=== PATIENT | female | born 1985 | race Hispanic/Latino ===

== ENCOUNTER 2016-10-22 14:16 | Emergency (ER) | payer OTHER ==
[2016-10-22 15:08] VITALS: BMI 23.1
[2016-10-22 15:09] VITALS: RESP 18; O2SAT 100
[2016-10-22] MEDS ORDERED: Sodium Chloride 0.9% 1,000 ML IV STA (15:47)
[2016-10-22 15:57] LABS: PH,URINE 6.5 (4.7-8.0); URINE BILIRUBIN NEGATIVE (NEGATIVE); URINE BLOOD MODERATE (NEGATIVE); URINE GLUCOSE (UA) NEGATIVE (NEGATIVE); URINE LEUKOCYTE ESTERASE NEGATIVE Leu/uL (NEGATIVE); URINE NITRATE NEGATIVE (NEGATIVE); URINE PROTEIN NEGATIVE mg/dL (<30 mg/dL); URINE UROBILINOGEN 0.2 E.U./dL (<1 E.U./dL)
[2016-10-22 15:58] LABS: URINE COLOR LIGHT YELLOW (YELLOW)
[2016-10-22 16:12] LABS: URINE APPEARANCE CLEAR (CLEAR); URINE WBC 0 - 2 /hpf (0-6)
[2016-10-22 16:13] LABS: URINE BACTERIA FEW (NEG); URINE RBC 0 - 2 /hpf (0-2)
[2016-10-22 16:15] VITALS: TEMP 98.2
--- NOTE | 2016-10-22 17:28 | ED PDOC ---
Arrival/HPI - General Chief Complaint: Abdominal Pain Time Seen by Provider: 10/22/16 15:46 - History of Present Illness Narrative History of Present Illness (Text): 10/22/16 17:24 31yo female, states she has a hx of hematuria, with 4 days duration of increased urinary frequency, suprapubic pressure, slight back pain, nausea, and fevers with chills. Denies vomiting. Denies neck or back pain. Denies other complaints. Past Medical History - Provider Review Nursing Documentation Reviewed: Yes - Infectious Disease Hx of Infectious Diseases: None - Psychiatric Hx Substance Use: No - Anesthesia Hx Anesthesia: No Family/Social History Family/Social History: Unknown Family HX Smoking Status: Never Smoked Hx Alcohol Use: No Hx Substance Use: No Allergies/Home Meds Allergies/Adverse Reactions: Allergies No Known Allergies Allergy (Verified 10/22/16 15:08) Physical Exam - Physical Exam Narrative Physical Exam (Text): 10/22/16 17:25 - Review of Systems Constitutional: fevers, chills. absent: Fatigue, Weight Change Eyes: Normal ENT: denies sore throat, denies tristhmus Respiratory: Normal. absent: SOB, Cough, Sputum Cardiovascular: absent: Chest Pain, Palpitations, Syncope Gastrointestinal: Normal. absent: Abdominal Pain, Diarrhea, Nausea, Vomiting Genitourinary: Frequency. absent: Dysuria, Hematuria, vaginal bleeding Musculoskeletal: Back Pain. absent: Arthralgias, Neck Pain Skin: no rashes, no erythema Neurological: absent: Focal Weakness Endocrine: Normal Hemo/Lymphatic: Normal Psychiatric: No suicidal or homicidal ideations Physical exam Patient appears age appropriate in no distress, speaking full sentences without difficulty - Systems Exam Head: Present: Atraumatic, Normocephalic Pupils: Present: PERRL Extroacular Muscles: Present: EOMI Conjunctiva: Present: Normal Mouth: Present: Moist Mucous Membranes Neck: Present: Normal Range of Motion. No: MIDLINE TENDERNESS, Paraspinal Tenderness Respiratory/Chest: Present: Clear to Auscultation, Good Air Exchange. No: Respiratory Distress, Accessory Muscle Use, Tachypneic Cardiovascular: Present: Regular Rate and Rhythm, Normal S1, S2, Peripheal Pulses Present. No: Murmurs Abdomen: Present: Suprapubic tenderness to palpation Normal Bowel Sounds. No: Distention, Peritoneal Signs, Rebound, Guarding Back: Present: Normal Inspection. No: Midline Tenderness, Paraspinal Tenderness Upper Extremity: Present: Normal Inspection. No: Cyanosis, Edema Lower Extremity: Present: Normal Inspection. No: Edema Neurological: Present: GCS=15, Speech Normal, cranial nerves II through XII fully intact with no cerebellar abnormality, neurosensory fully intact. No focal neurological deficits. Skin: Present: Warm, Dry, Normal Color. No: Rashes Lymphatic: Present: OX3, NI, NC Psychiatric: Present: Alert, Oriented x 3, Normal Insight, Normal Concentration 10/22/16 17:28 Vital Signs Reviewed: Yes Vital Signs Temp Pulse Resp BP Pulse Ox 10/22/16 17:51 79 18 119/69 100 10/22/16 16:14 98.2 F 89 18 115/71 100 10/22/16 15:08 90 18 117/78 100 Temperature: Afebrile Blood Pressure: Normal Pulse: Regular Respiratory Rate: Normal Appearance: Positive for: Well-Appearing Pain Distress: None Mental Status: Positive for: Alert and Oriented X 3 Medical Decision Making ED Course and Treatment: 10/22/16 17:26 31yo female with freq, nausea, f/c. states she has a hx of hematuria and her PMD is aware differential includes but not limited to: UTI, pyelo labs, ua, meds ordered 10/22/16 18:33 no acute lab findings UA with possible UTI CT with no acute findings pt in no distress tolerating PO without difficulty will be dc'd home with PO abx pt states she feels comfortable being dc'd home with outpatient f/u Pt states she understands to return to the ER right away for new or worsening symptoms or for inability to f/u with PMD or specialist as instructed. Patient states that she fully agrees with and understands discharge instructions. States that she agrees with the plan and disposition. Verbalized and repeated discharge instructions and plan. I have given the patient opportunity to ask any additional questions. Director Of Corporate Sales : Jalyn Snow MD PROCEDURE: CT Abdomen and Pelvis without Oral or IV contrast. HISTORY: hematuria COMPARISON: Renal ultrasound performed 07/16/16 TECHNIQUE: Contiguous axial images of the abdomen and pelvis. No oral or IV contrast administered. Coronal and Sagittal reformats generated and reviewed. Radiation dose: Total exam DLP = 257.03 mGy-cm. This CT exam was performed using one or more of the following dose reduction techniques: Automated exposure control, adjustment of the mA and/or kV according to patient size, and/or use of iterative reconstruction technique. FINDINGS: There is limited evaluation of the solid organs without the administration of IV contrast. LOWER THORAX: No visible consolidation, pleural effusion, or pneumothorax. LIVER: Unremarkable unenhanced appearance. GALLBLADDER AND BILE DUCTS: Unremarkable unenhanced appearance. PANCREAS: Unremarkable unenhanced appearance. SPLEEN: Unremarkable unenhanced appearance. ADRENALS: Unremarkable unenhanced appearance. KIDNEYS AND URETERS: No hydronephrosis or obstructing renal calculus. BLADDER: Decompressed urinary bladder cannot be adequately assessed. REPRODUCTIVE: Uterus is present. APPENDIX: The appendix appears within normal limits of caliber. No secondary signs of acute appendicitis. BOWEL: The stomach is nondistended. Lack of oral contrast limits evaluation for bowel pathology. The bowel loops appear within normal limits of caliber without evidence of intestinal obstruction. PERITONEUM: No significant free fluid. No definite free air. LYMPH NODES: No bulky lymphadenopathy identified. VASCULATURE: No aortic aneurysm. BONES: No acute osseous abnormality is detected. OTHER FINDINGS: None. IMPRESSION: Decompressed urinary bladder cannot be adequately assessed. No hydronephrosis or obstructing renal/ureteral calculus identified. - Lab Interpretations Lab Results: 10/22/16 17:25 10/22/16 17:25 Lab Results 10/22/16 17:25: Sodium 142, Potassium 3.3 L, Chloride 103, Carbon Dioxide 27, Anion Gap 15, BUN 8, Creatinine 0.6, Est GFR ( Amer) > 60, Est GFR (Non- Af Amer) > 60, Random Glucose 85, Calcium 9.8, Total Bilirubin 0.7, AST 28, ALT 29, Alkaline Phosphatase 58, Total Protein 9.1 H, Albumin 5.0 H, Globulin 4.2, Albumin/Globulin Ratio 1.2 10/22/16 17:25: WBC 7.0 D, RBC 4.34, Hgb 14.0, Hct 39.4, MCV 90.8, MCH 32.3, MCHC 35.5, RDW 11.8, Plt Count 184, MPV 10.7, Gran % 54.1, Lymph % (Auto) 30.6, [place] % (Auto) 14.0 H, Eos % (Auto) 1.0 L, Baso % (Auto) 0.3, Gran # 3.80, Lymph # 2.2, [place] # 1.0 H, Eos # 0.1, Baso # 0.02 10/22/16 15:12: Urine Color Light yellow, Urine Appearance Clear, Urine pH 6.5, Ur Specific [place] <= 1.005, Urine Protein Negative, Urine Glucose (UA) Negative, Urine Ketones Negative, Urine Blood Moderate H, Urine Nitrate Negative , Urine Bilirubin Negative, Urine Urobilinogen 0.2, Ur Leukocyte Esterase Negative, Urine RBC 0 - 2, Urine WBC 0 - 2, Ur Epithelial Cells 1 - 3, Urine Bacteria Few - RAD Interpretation Radiology Orders: 10/22/16 16:18 ABD & PELVIS W/O PO OR IV CONT [CT] Stat - Medication Orders Current Medication Orders: Discontinued Medications Sodium Chloride (Sodium Chloride 0.9%) 1,000 mls @ 1,000 mls/hr IV .Q1H STA Stop: 10/22/16 16:46 Last Admin: 10/22/16 17:37 Dose: 1,000 mls/hr Ketorolac Tromethamine (Toradol) 15 mg IVP STAT STA Stop: 10/22/16 15:48 Last Admin: 10/22/16 17:39 Dose: Ondansetron HCl (Zofran Inj) 4 mg IVP STAT STA Stop: 10/22/16 15:48 Last Admin: 10/22/16 17:39 Dose: Disposition/Present on Arrival - Present on Arrival Any Indicators Present on Arrival: No History of DVT/PE: No History of Uncontrolled Diabetes: No Urinary Catheter: No History of Decub. Ulcer: No History Surgical Site Infection Following: None - Disposition Have Diagnosis and Disposition been Completed?: Yes Diagnosis: UTI (urinary tract infection) Disposition: HOME/ ROUTINE Disposition Time: 18:37 Patient Plan: Discharge Condition: GOOD Discharge Instructions (ExitCare): Acute Hematuria (ED), Urinary Tract Infection in Women (DC) Additional Instructions: PLEASE RETURN TO THE EMERGENCY DEPARTMENT FOR NEW OR WORSENING SYMPTOMS. RETURN RIGHT AWAY IF YOU CANNOT FOLLOW UP WITH YOUR PRIMARY CARE DOCTOR, CLINIC, OR SPECIALIST IN 1-2 DAYS. PLEASE INFORM YOUR PRIMARY PHYSICIAN THAT YOU NEED FURTHER WORKUP AND INVESTIGATION OF BLOOD IN THE URINE PLEASE FOLLOW UP IN MEDICAL RECORDS FOR YOUR URINE RESULTS Prescriptions: Nitrofurantoin Macrocrystals [Macrobid] 100 mg PO BID #14 cap Referrals: Potoczek-Salahi,Aniyah, MD [Primary Care Provider] - Follow up with primary
[2016-10-22 17:47] LABS: BASO # 0.02 K/mm3 (0.0-2.0); BASO % 0.3 % (0.0-3.0); EOS # 0.1 (0.0-0.7); GRAN % 54.1 % (50.0-68.0); LYMPH # 2.2 (1.2-3.4); LYMPH % 30.6 % (22.0-35.0); MEAN CELL VOLUME 90.8 fL (80.0-105.0); MEAN CORPUSCULAR HEMOGLOBIN 32.3 pg (25.0-35.0); MEAN CORPUSCULAR HGB CONC 35.5 g/dl (31.0-37.0); MEAN PLATELET VOLUME 10.7 fl (7.0-11.0); PLATELET COUNT 184 10^3/uL (120.0-450.0); RBC 4.34 10^6/uL (3.5-6.1); RED CELL DISTRIBUTION WIDTH 11.8 % (11.5-14.5)
[2016-10-22 17:51] VITALS: BP 119/69; PULSE 79
[2016-10-22 17:57] LABS: ALB/GLOB RATIO 1.2 (1.1-1.8); AST/SGOT 28 U/L (15-39); BLOOD UREA NITROGEN 8 mg/dL (7-21); CALCIUM 9.8 mg/dL (8.4-10.5); GFR AFRICAN-AMERICAN > 60; GFR NON-AFRICAN AMERICAN > 60
[2016-10-22 18:02] LABS: ALT/SGPT 29 U/L (7-56)
--- NOTE | 2016-10-22 18:16 | CT ---
PROCEDURE: CT Abdomen and Pelvis without Oral or IV contrast. HISTORY: hematuria COMPARISON: Renal ultrasound performed 07/16/16 TECHNIQUE: Contiguous axial images of the abdomen and pelvis. No oral or IV contrast administered. Coronal and Sagittal reformats generated and reviewed. Radiation dose: Total exam DLP = 257.03 mGy-cm. This CT exam was performed using one or more of the following dose reduction techniques: Automated exposure control, adjustment of the mA and/or kV according to patient size, and/or use of iterative reconstruction technique. FINDINGS: There is limited evaluation of the solid organs without the administration of IV contrast. LOWER THORAX: No visible consolidation, pleural effusion, or pneumothorax. LIVER: Unremarkable unenhanced appearance. GALLBLADDER AND BILE DUCTS: Unremarkable unenhanced appearance. PANCREAS: Unremarkable unenhanced appearance. SPLEEN: Unremarkable unenhanced appearance. ADRENALS: Unremarkable unenhanced appearance. KIDNEYS AND URETERS: No hydronephrosis or obstructing renal calculus. BLADDER: Decompressed urinary bladder cannot be adequately assessed. REPRODUCTIVE: Uterus is present. APPENDIX: The appendix appears within normal limits of caliber. No secondary signs of acute appendicitis. BOWEL: The stomach is nondistended. Lack of oral contrast limits evaluation for bowel pathology. The bowel loops appear within normal limits of caliber without evidence of intestinal obstruction. PERITONEUM: No significant free fluid. No definite free air. LYMPH NODES: No bulky lymphadenopathy identified. VASCULATURE: No aortic aneurysm. BONES: No acute osseous abnormality is detected. OTHER FINDINGS: None. IMPRESSION: Decompressed urinary bladder cannot be adequately assessed. No hydronephrosis or obstructing renal/ureteral calculus identified.
== END 2016-10-22 19:07 | disposition home or self-care (01) ==
LOC: ED 14:16
DX: N39.0 Urinary tract infection, site not specified (principal)
CPT/HCPCS: 74176; 80053; 81001; 85025; 87086; 99284; J7040

== ENCOUNTER 2017-06-20 08:11 | Emergency (ER) | payer OTHER ==
[2017-06-20 08:20] VITALS: TEMP 98.3; BMI 23.9
--- NOTE | 2017-06-20 08:38 | ED PDOC ---
Arrival/HPI - General Chief Complaint: Dizziness/Lightheaded Time Seen by Provider: 06/20/17 08:14 - History of Present Illness Narrative History of Present Illness (Text): 06/20/17 08:28 A 32 year old female, whose past medical history includes vertigo, presents to the emergency department complaining dizziness since this morning. Patient reports waking up with symptom and was unable to get out of bed or move around too much due to room-spinning sensation. States having similar episode few months ago. Patient notes also experiencing nausea. Also, patient mentions experiencing abdominal pain few days ago but has since resolved. Patient denies any vomiting, diarrhea, or any other complaints at this time. Notes taking no medications for complaint. PMD: Dr. Chew Time/Duration: Other (earlier this morning ) Symptom Onset: Sudden, Gradual Symptom Course: Unchanged Past Medical History - Provider Review Nursing Documentation Reviewed: Yes - Infectious Disease Hx of Infectious Diseases: None - Cardiac Hx Cardiac Disorders: No - Pulmonary Hx Respiratory Disorders: No - Neurological Hx Vertigo: Yes - HEENT Hx HEENT Disorder: No - Renal Hx Renal Disorder: No - Endocrine/Metabolic Hx Endocrine Disorders: No - Hematological/Oncological Hx Blood Disorders: No - Integumentary Hx Dermatological Disorder: No - Musculoskeletal/Rheumatological Hx Musculoskeletal Disorders: No - Gastrointestinal Hx Gastrointestinal Disorders: No - Genitourinary/Gynecological Hx Genitourinary Disorders: No - Psychiatric Hx Psychophysiologic Disorder: No Hx Substance Use: No - Anesthesia Hx Anesthesia: No Family/Social History - Physician Review Nursing Documentation Reviewed: Yes Family/Social History: No Known Family HX Smoking Status: Never Smoked Hx Alcohol Use: No Hx Substance Use: No Allergies/Home Meds Allergies/Adverse Reactions: Allergies No Known Allergies Allergy (Verified 06/20/17 08:20) Review of Systems - Physician Review All systems were reviewed & negative as marked: Yes - Review of Systems Gastrointestinal: Nausea. absent: Abdominal Pain, Diarrhea, Vomiting Neurological: Dizziness (room-spinning sensation) Physical Exam Vital Signs Reviewed: Yes Vital Signs Temp Pulse Resp BP Pulse Ox 06/20/17 11:06 68 16 121/77 100 06/20/17 10:00 74 17 120/80 100 06/20/17 08:18 98.3 F 80 16 117/72 98 Temperature: Afebrile Blood Pressure: Normal Pulse: Regular Respiratory Rate: Normal Appearance: Positive for: Well-Appearing Pain Distress: None Mental Status: Positive for: Alert and Oriented X 3 Finger Stick Blood Glucose: 95 - Systems Exam Head: Present: Atraumatic, Normocephalic Pupils: Present: Other (horizontal nystagmus) Extroacular Muscles: Present: EOMI Conjunctiva: Present: Normal Mouth: Present: Moist Mucous Membranes Neck: Present: Normal Range of Motion Respiratory/Chest: Present: Clear to Auscultation, Good Air Exchange. No: Respiratory Distress, Accessory Muscle Use Cardiovascular: Present: Regular Rate and Rhythm, Normal S1, S2. No: Murmurs Abdomen: Present: Normal Bowel Sounds. No: Tenderness, Distention, Peritoneal Signs Back: Present: Normal Inspection Upper Extremity: Present: Normal Inspection. No: Cyanosis, Edema Lower Extremity: Present: Normal Inspection. No: Edema Neurological: Present: GCS=15, CN II-XII Intact, Speech Normal, Other (+ hallpikes maneaver) Skin: Present: Diaphoretic Psychiatric: Present: Alert, Oriented x 3, Normal Insight, Normal Concentration Medical Decision Making ED Course and Treatment: 06/20/17 08:30 Impression:32 year old female with dizziness and nausea. Physical exam shows horizontal nystagmus; patient appears diaphoretic; and normal neuro examination. Differential Diagnosis included but are not limited to: Benign Positional Vertigo Plan: -- EKG -- Antivert -- Fingerstick -- Reassess and disposition Prior Visits: Notes and results from previous visits were reviewed. Patient was last seen in the emergency department on 10/22/2016 for increased urinary frequency, suprapubic pressure, slight back pain, nausea, and fever with chills. Patient was discharged home. Progress Notes: EKG: Ordered, reviewed, and independently interpreted the EKG. Rate : 58 BPM Rhythm : Sinus bradycardia Interpretation : No ST-segment elevations or depressions, no T-wave inversions, normal intervals. Comparison : No previous EKG for comparison. 06/20/17 12:10 On reevaluation, patient no longer feels dizzy. She has a negative Hallpike's maneuver. She has no nystagmus. She is no longer nauseous. She also asked to check a UA because she has urinary frequency at times. No fever, no dysuria or no hematuria. Patient walking with no dizziness or ataxia. She will be discharged home to follow up with her primary doctor. She was advised to return to the ED if symptoms worsen or any other concerns. - Lab Interpretations Lab Results: Lab Results 06/20/17 11:11: Urine Color Yellow, Urine Appearance Clear, Urine pH 6.0, Ur Specific [place] <= 1.005, Urine Protein Negative, Urine Glucose (UA) Negative, Urine Ketones Negative, Urine Blood Trace-lysed H, Urine Nitrate Negative, Urine Bilirubin Negative, Urine Urobilinogen 0.2, Ur Leukocyte Esterase Negative , Urine RBC Negative, Urine WBC Negative 06/20/17 08:20: POC Glucose (mg/dL) 95 - Medication Orders Current Medication Orders: Discontinued Medications Meclizine HCl (Antivert) 25 mg PO STAT STA Stop: 06/20/17 08:30 Last Admin: 06/20/17 08:50 Dose: 25 mg - Scribe Statement The provider has reviewed the documentation as recorded by the Lily Mcintosh Provider Scribe Attestation: All medical record entries made by the [employer] were at my direction and personally dictated by me. I have reviewed the chart and agree that the record accurately reflects my personal performance of the history, physical exam, medical decision making, and the department course for this patient. I have also personally directed, reviewed, and agree with the discharge instructions and disposition. Disposition/Present on Arrival - Present on Arrival Any Indicators Present on Arrival: No History of DVT/PE: No History of Uncontrolled Diabetes: No Urinary Catheter: No History of Decub. Ulcer: No History Surgical Site Infection Following: None - Disposition Have Diagnosis and Disposition been Completed?: Yes Diagnosis: Benign positional vertigo Disposition: HOME/ ROUTINE Disposition Time: 12:12 Patient Plan: Discharge Patient Problems: Current Active Problems Problem Status Onset Benign positional vertigo Acute Condition: IMPROVED Discharge Instructions (ExitCare): Vertigo (a Type of Dizziness) Additional Instructions: Ms Mackey, thank you for letting us take care of you today. Your provider was Dr. Garrido. You were treated for Benign Positional Vertigo. The emergency medical care you received today was directed at your acute symptoms. If you were prescribed any medication, please fill it and take as directed. It may take several days for your symptoms to resolve. Return to the Emergency Department if your symptoms worsen, do not improve, or if you have any other problems. Please contact your doctor or call one of the physicians/clinics you have been referred to that are listed on the Patient Visit Information form that is included in your discharge packet. Bring any paperwork you were given at discharge with you along with any medications you are taking to your follow up visit. Our treatment cannot replace ongoing medical care by a primary care provider (PCP) outside of the emergency department. Thank you for allowing the [facility] team to be part of your care today. If you had an X-Ray or CT scan: A Radiologist will review the ED reading if any change in treatment is needed we will contact you. If you had a blood, urine, or wound culture: It will take several days for the results, if any change in treatment is needed we will contact you. If you had an STI test: It will take 48 hours for the results. Please call after 1 week if you have not heard back. Prescriptions: Meclizine [Meclizine*] 25 mg PO Q8 PRN #30 tab PRN Reason: Dizziness Referrals: Aniyah Vigil MD [Primary Care Provider] - Follow up with primary Forms: [employer] (Indonesian), WORK NOTE
[2017-06-20 10:21] VITALS: O2SAT 100
[2017-06-20 11:33] LABS: URINE BILIRUBIN NEGATIVE (NEGATIVE); URINE BLOOD TRACE-LYSED (NEGATIVE); URINE GLUCOSE (UA) NEGATIVE (NEGATIVE); URINE LEUKOCYTE ESTERASE NEGATIVE Leu/uL (NEGATIVE); URINE PROTEIN NEGATIVE mg/dL (<30 mg/dL); URINE UROBILINOGEN 0.2 E.U./dL (<1 E.U./dL)
[2017-06-20 11:39] LABS: URINE APPEARANCE CLEAR (CLEAR); URINE COLOR YELLOW (YELLOW)
[2017-06-20 11:47] LABS: URINE RBC NEGATIVE /hpf (0-2); URINE WBC NEGATIVE /hpf (0-6)
[2017-06-20 12:26] VITALS: BP 125/88; PULSE 64; RESP 17
--- NOTE | 2017-06-20 15:37 | CARD ---
APPROVED REPORT EKG Measurement Heart [id number] <Conclusion> Sinus bradycardia with sinus arrhythmia Otherwise normal ECG
== END 2017-06-20 12:12 | disposition home or self-care (01) ==
LOC: ED 08:11
DX: H81.10 Benign paroxysmal vertigo, unspecified ear (principal)

== ENCOUNTER 2018-05-25 19:09 | Emergency (ER) | payer OTHER | END 2018-05-25 23:00 | disposition home or self-care (01) | LOC: ED 19:09 ==